=== PATIENT | female | born 2000 | race Caucasian/White ===

== ENCOUNTER 2018-11-25 19:14 | Inpatient (IN) ==
[2018-11-25] MEDS ORDERED: STADOL IV PRN ×2 (19:17)
[2018-11-25] MEDS ORDERED: REGLAN PO ONE (19:17)
[2018-11-25] MEDS ORDERED: PEPCID PO PRN (19:17)
[2018-11-25] MEDS ORDERED: PEPCID IV PRN (19:17)
[2018-11-25] MEDS ORDERED: BRETHINE SUBQ PRN (19:17)
[2018-11-25] MEDS ORDERED: TYLENOL PO PRN (19:17)
[2018-11-25] MEDS ORDERED: KEFZOL 1 GM/D5W 1 GM/50 ML IVPB IV PRN (19:17)
[2018-11-25] MEDS ORDERED: ZOFRAN IV PRN (19:17)
[2018-11-25] MEDS ORDERED: AMBIEN PO PRN (19:17)
[2018-11-25] MEDS ORDERED: PEPCID PO ONE (19:17)
[2018-11-25] MEDS: LR 1,000 ML IV ONE (19:50)
[2018-11-25] MEDS ORDERED: CYTOTEC VAG ONE (20:00)
[2018-11-25] MEDS ORDERED: CYTOTEC ONE (20:33)
[2018-11-25 20:34] LABS: URINE SOURCE VOIDED
[2018-11-25 20:36] LABS: BASO# 0.08 X1000 (0.0-0.2); BASO% 0.5 % (0.0-0.8); EOS% 2.7 % (0.0-10.0); HEMOGLOBIN 8.3 g/dL (12.0-16.0); IMM GRAN# 1.34 X1000 (0.0-0.04); IMM GRAN% 9.1 % (0.0-0.5); LYMPH# 2.21 X1000 (1.2-3.4); LYMPH% 14.9 % (20.5-51.1); MCH 23.4 PG (27-31); MCHC 30.7 g/dL (33-37); MCV 76.1 FL (81-99); MONO# 1.36 X1000 (0.11-0.59); MONO% 9.2 % (1.7-9.3); MPV 9.9 FL (7.4-10.4); NEUT% 63.6 % (42.2-75.2); PLT 302 X1000 (130-400); RBC 3.55 XMIL (4.2-5.4); RDW 16.2 % (11.5-14.5); WBC 14.79 X1000 (4.8-10.8)
[2018-11-25 20:49] LABS: ANISOCYTOSIS 1+; BANDS 4 % (0-1); EOS 3 % (1-10); LYMPHS 18 % (21-51); MONO 8 % (1-9); SEGS 65 % (42-75)
[2018-11-25 20:50] LABS: LARGE PLATELETS 1+; MICROCYTOSIS 1+; OVALOCYTES OCCASIONAL; POIKILOCYTOSIS OCCASIONAL; POLYCHROM 1+
[2018-11-25 20:53] LABS: BILIRUBIN URINE NEGATIVE (NEGATIVE); BLOOD URINE NEGATIVE (NEGATIVE); CLARITY CLEAR (CLEAR); COLOR YELLOW; GLUCOSE URINE NEGATIVE (NEGATIVE); KETONE URINE NEGATIVE (NEGATIVE); LEUKOCYTES URINE TRACE (NEGATIVE); NITRITE URINE NEGATIVE (NEGATIVE); PROTEIN URINE NEGATIVE (NEGATIVE); UROBILINOGEN URINE NORMAL
[2018-11-25 21:10] LABS: UR AMPHETAMINES QUAL NONE DETECTED (NONE DETECT); UR BARBITUATES QUAL NONE DETECTED (NONE DETECT); UR BENZODIAZEPIN QUAL NONE DETECTED (NONE DETECT); UR COCAINE QUAL NONE DETECTED (NONE DETECT)
[2018-11-25 21:11] LABS: UR CANNABINOIDS QUAL NONE DETECTED (NONE DETECT); UR METHADONE QUAL NONE DETECTED (NONE DETECT); UR METHAMPHETAMINE QUAL NONE DETECTED (NONE DETECT); UR OPIATES QUAL NONE DETECTED (NONE DETECT); UR OXYCODONE QUAL NONE DETECTED (NONE DETECT); UR PCP QUAL NONE DETECTED (NONE DETECT); UR PROPOXYPHENE QUAL NONE DETECTED (NONE DETECT); UR TCA QUAL NONE DETECTED (NONE DETECT)
[2018-11-26] MEDS ORDERED: CYTOTEC VAG SCH
[2018-11-26] MEDS: LR 1,000 ML IV ONE (01:16)
[2018-11-26] MEDS: STADOL IV PRN ×2 (04:04→06:00)
[2018-11-26] MEDS: CYTOTEC VAG SCH ×2 (04:04→05:40)
[2018-11-26] MEDS ORDERED: NAROPIN 0.2% INJ ONE ×2 (06:36→07:15)
[2018-11-26] MEDS ORDERED: XYLOCAINE-MPF 1% INJ ONE (06:36)
[2018-11-26] MEDS ORDERED: MINERAL OIL MISC ONE (06:37)
[2018-11-26] MEDS ORDERED: FENTANYL-BUPIV-NS 2 MCG-0.1% 200 ML EPIDURAL SCH (06:45)
[2018-11-26] MEDS ORDERED: PITOCIN 20 UNITS/NS 20 UNITS/1,000 ML IV.SOLN ONE (07:58)
[2018-11-26] MEDS ORDERED: PITOCIN 30 UNITS/NS 30 UNIT/500 ML IV.SOLN IV SCH ×2 (08:00→09:45)
[2018-11-26] MEDS ORDERED: HYDROXYZINE IM PRN (09:42)
[2018-11-26] MEDS ORDERED: PITOCIN IM PRN (09:42)
[2018-11-26] MEDS ORDERED: BENADRYL IV PRN (09:42)
[2018-11-26] MEDS ORDERED: CYTOTEC PO PRN (09:42)
[2018-11-26] MEDS ORDERED: BOOSTRIX VACCINE IM ONE (09:42)
[2018-11-26] MEDS ORDERED: XYLOCAINE-MPF 1% INJ PRN (09:42)
[2018-11-26] MEDS ORDERED: AMBIEN PO PRN (09:42)
[2018-11-26] MEDS ORDERED: ATARAX PO PRN (09:42)
[2018-11-26] MEDS ORDERED: M-M-R II VACCINE SUBQ ONE (09:42)
[2018-11-26] MEDS ORDERED: MINERAL OIL PO PRN (09:42)
[2018-11-26] MEDS ORDERED: PERI MEDS (DERMOPLAST/NUPERCAINAL/TUCKS) MISC PRN (09:42)
[2018-11-26] MEDS ORDERED: BENADRYL PO PRN (09:42)
[2018-11-26] MEDS ORDERED: PITOCIN 20 UNITS/NS 20 UNITS/1,000 ML IV.SOLN IV SCH (09:45)
[2018-11-26] MEDS: MOTRIN PO PRN ×2 (10:17→20:03)
--- NOTE | 2018-11-26 10:29 | HISTORY AND PHYSICAL ---
HISTORY OF PRESENT ILLNESS: The patient presents to Labor and Delivery for a scheduled induction at 40 weeks. The patient is a G2, P1-0-0-1. Reports good movement. Denies contractions, leakage of fluid or vaginal bleeding. PAST MEDICAL HISTORY: Noncontributory. MEDICATIONS: vitamins. SURGERIES: None. GYNECOLOGICAL HISTORY: Menarche at age 10. History of Chlamydia exposure, treated. OBSTETRICAL HISTORY: G2, P1-0-0-1. One prior full-term vaginal delivery. SOCIAL HISTORY: Denies tobacco, alcohol, or drug use. FAMILY HISTORY: Noncontributory. ALLERGIES: No known drug allergies. VITAL SIGNS: Temperature 97 degrees Fahrenheit, pulse rate 77, respiration rate 18, blood pressure 101/57. LABORATORY DATA: WBCs 14.79, hemoglobin 8.3, hematocrit 27, platelets 302,000. RPR nonreactive. GBS negative. PHYSICAL EXAMINATION: GENERAL: No acute distress. CARDIOVASCULAR: Regular rate and rhythm. Positive S1, S2. RESPIRATION: Clear to auscultation bilaterally. ABDOMEN: Gravid, nontender to palpation. STERILE SPECULUM EXAM: 1 cm dilated, thick, -3. Electronic monitor monitoring category 1 tracing, toco, negative contractions. ASSESSMENT: Ms Orozco is a 18-year-old, G2, P1-0-0-1 at 40 weeks, who presents to Labor and Delivery for induction of labor secondary to postdates. PLAN: 1. Admit to Labor and delivery. 2. Obtain routine labor labs. 3. Induction with misoprostol 25 mcg per vagina q.4 hours. 4. Augmentation of labor with artificial rupture of membranes and possible Pitocin. 5. Estimated weight is 8 pounds. 6. Anticipate spontaneous vaginal delivery.
[2018-11-26] MEDS: TYLENOL PO PRN ×2 (16:34→22:55)
--- NOTE | 2018-11-26 19:17 | OPERATIVE NOTE ---
PROCEDURE DATE: 11/26/2018 DELIVERING PHYSICIAN: Bennie Ching DO DESCRIPTION OF PROCEDURE: At 7:13 a.m., the patient delivered a viable, 40-week male fetus weighing 7 pounds 13 ounces with Apgars of 8 and 9 at 1 and 5 minutes respectively. The vertex was delivered spontaneously over intact perineum. A loose nuchal cord x2 was identified and reduced, clamped and cut. The anterior shoulder was delivered atraumatically by maternal expulsive efforts with the assistance of downward traction. The posterior shoulder delivered with maternal expulsive efforts and upward traction. The remainder of the fetus delivered spontaneously. Upon delivery, the cord was clamped and cut. The was passed to the awaiting griddle attendant staff. Cord blood was obtained for analysis to enhance uterine contractions. IV oxytocin was administered after spontaneous delivery of an intact 3-vessel cord placenta. The cervix, vagina, and perineum were inspected for lacerations. No lacerations were identified. ESTIMATED BLOOD LOSS: 250 mL.
[2018-11-26] MEDS ORDERED: PERICOLACE PO SCH (21:00)
[2018-11-27] MEDS: MOTRIN PO PRN ×3 (04:13→21:13)
[2018-11-27 04:40] LABS: BASO# 0.07 X1000 (0.0-0.2); BASO% 0.5 % (0.0-0.8); EOS# 0.32 X1000 (0.0-0.7); EOS% 2.1 % (0.0-10.0); HEMATOCRIT 26.6 % (37.0-47.0); IMM GRAN# 0.79 X1000 (0.0-0.04); IMM GRAN% 5.1 % (0.0-0.5); LYMPH# 2.48 X1000 (1.2-3.4); MCH 23.4 PG (27-31); MCHC 30.1 g/dL (33-37); MCV 77.8 FL (81-99); MONO# 1.74 X1000 (0.11-0.59); MONO% 11.2 % (1.7-9.3); MPV 10.2 FL (7.4-10.4); NEUT# 10.12 X1000 (1.4-6.5); NEUT% 65.1 % (42.2-75.2); PLT 294 X1000 (130-400); RBC 3.42 XMIL (4.2-5.4); RDW 16.2 % (11.5-14.5); WBC 15.52 X1000 (4.8-10.8)
[2018-11-27 05:26] LABS: BANDS 1 % (0-1); EOS 2 % (1-10); LYMPHS 19 % (21-51); MONO 9 % (1-9); SEGS 69 % (42-75)
[2018-11-27 05:27] LABS: ANISOCYTOSIS OCCASIONAL
[2018-11-27 05:28] LABS: MICROCYTOSIS OCCASIONAL; OVALOCYTES 1+; POIKILOCYTOSIS 1+
[2018-11-27] MEDS: TYLENOL PO PRN ×2 (08:31→20:28)
--- NOTE | 2018-11-27 08:40 | OB/GYN PROGRESS NOTE ---
Progress Note OB - . OB Progress Note: Vital Signs - 24 hr 11/26/18 16:36 11/26/18 19:57 11/27/18 00:18 Temperature 96.9 F L 96.3 F L 96.4 F L Pulse Rate 76 61 53 L Respiratory Rate 16 18 18 Blood Pressure 113/71 101/50 91/46 O2 Sat by Pulse Oximetry 100 99 99 11/27/18 04:15 Temperature 96.2 F L Pulse Rate 57 L Respiratory Rate 18 Blood Pressure 87/56 O2 Sat by Pulse Oximetry 100 Laboratory Results - last 24 hr 11/27/18 04:07 WBC 15.52 H RBC 3.42 L Hgb 8.0 L Hct 26.6 L MCV 77.8 L MCH 23.4 L MCHC 30.1 L RDW Std Deviation 16.2 H Plt Count 294 MPV 10.2 Immature Gran % (Auto) 5.1 H Neut % (Auto) 65.1 Lymph % (Auto) 16.0 L [place] % (Auto) 11.2 H Eos % (Auto) 2.1 Baso % (Auto) 0.5 Immature Gran # (Auto) 0.79 H Neut # (Auto) 10.12 H Lymph # (Auto) 2.48 [place] # (Auto) 1.74 H Eos # (Auto) 0.32 Baso # (Auto) 0.07 Segmented Neutrophils 69 Band Neutrophils 1 Lymphocytes 19 L Monocytes 9 Eosinophils 2 Poikilocytosis 1+ Anisocytosis OCCASIONAL Microcytosis OCCASIONAL Ovalocytes 1+ Pt doing well no complaints. Pain controlled with meds minimal lochia bottlefedding desires circ for baby O VSSAF GEN AAOx3 NAD CV: RRR no g/m/r Lungs: CTAB no w/r/r Abd: +BS soft NT/ND fundus firm Ext: no c/c/e CBC pending A: S/P Anemia P: routine pp care
[2018-11-28] MEDS: MOTRIN PO PRN (10:01)
[2018-11-28 11:06] VITALS: BP 105/56
--- NOTE | 2018-12-01 16:06 | DISCHARGE SUMMARY ---
ADMISSION DATE: 11/25/2018 DISCHARGE DATE: 11/28/2018 ADMISSION DIAGNOSIS: 18-year-old female, 2, para 1, at 40 weeks gestation for induction of labor. FINAL DIAGNOSIS: 18-year-old female, 2, para 1, at 40 weeks gestation for induction of labor with spontaneous vaginal delivery of a male, 7 pounds 13 ounces with Apgars of 8 and 9 at 0713 on 11/26/2018. PROCEDURE: Spontaneous vaginal delivery. BRIEF HISTORY: The patient is a 18-year-old female, G2, P1, at 40 weeks gestation scheduled for induction. Reports good movement. Denies contractions. PAST MEDICAL HISTORY: Unremarkable. MEDICATIONS: vitamins. SURGERIES: None. 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 History of Chlamydia exposure that was treated. OB HISTORY: Spontaneous vaginal delivery x1. SOCIAL HISTORY: Denies tobacco, alcohol, or drug use. FAMILY HISTORY: Noncontributory. ALLERGIES: No known drug allergies. PHYSICAL EXAMINATION: Vital Signs: Temperature 97 degrees, pulse of 77, respirations 18, blood pressure 101/57. General: No acute distress. CV: Regular rate and rhythm. Respiratory: Clear to auscultation bilaterally. Abdomen: Gravid, nontender. : On cervical exam she was 1 cm dilated, thick and -3. monitoring demonstrated a category 1 heart tracing. ASSESSMENT/PLAN: This is a 18-year-old female, G2, P1, at 40 weeks gestation for induction of labor. The patient will be initially started on Cytotec and then advanced to Pitocin. HOSPITAL COURSE: The patient had advanced in labor and had a spontaneous vaginal delivery of a male , 7 pounds 13 ounces with Apgars of 8 and 9 at 0713 on 11/26/2018. The patient's course was unremarkable. Her hemoglobin had dropped from 8.3 preinduction to 8.0 post delivery. Hematocrit upon admission was 27.0, and day 1, her hematocrit was 26.6. She had stable vital signs and was afebrile and had an uncomplicated course, and on day #2, it was felt she could be discharged home. DISCHARGE INSTRUCTIONS: Patient is to follow up in 6 weeks. Instructed on pelvic rest for 6 weeks. She was given medications including Colace, Motrin, [place] 5, and iron sulfate. cc: Arnold Baca III, MD
== END 2018-11-28 12:20 | disposition home or self-care (01) | DRG 807 ==
LOC: P.LD 19:14
PROVIDERS: ADMIT Obstetrics & Gynecology; ATTEND Obstetrics & Gynecology